=== PATIENT | female | born 1975 | race Caucasian/White ===

== ENCOUNTER 2023-09-30 09:00 | Outpatient (RCR) | payer OTHER, SELFPAY ==
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
--- NOTE | 2023-09-30 10:02 | HP.PTREVAL ---
Re-Evaluation Intro: Dr. Alon Kumar, DO, It has been my pleasure to treat ANGELIC ARCHULETA over the last 8 visits for CERVICAL SPONDYLOSIS & R SHLD IMPINGEMENT. Please see the progress note below for an update on the physical therapy plan of care! Subjective Subjective: PATIENT REPORTS SHE HAD FOLLOW UP WITH DR. KUMAR 09/25/23 AND HE ORDERED A NECK MRI (PENDING 10/15/23) AND THINKS IT IS DISC RELATED PROBABLY BELOW HER PRIOR SURGERY. OVER-ALL PATIENT REPORTS THERAPY HAS NOT HELPED HER PAIN AND NOW SHE IS GETTING L NECK PAIN TOO. SHE REPORTS SHE HAS LEARNED TOOLS IN PT TO HELP HER MANAGE THE PAIN. Objective Objective/Function: UPON EXAM TODAY PATIENT HAS LESS IRRITABILITY OF PAIN WITH NECK ROM TESTING AND BETTER STRENGTH OF R UE. SHE ALSO HAS BETTER POSTURAL AWARENESS AND STRENGTH. SHE IS PLEASANT AND COOPERATIVE TO WORK WITH AND ATTENTIVE TO INSTRUCTIONS GIVEN. ROM deficit: DILMA UE ROM WFL AND SYMMETRICAL. Motor deficit: L HAND DOMINANT BUT DOES EVERYTHING WITH R HAND EXCEPT WRITE. L UE 5/5. R UE 5/5. Cervical Mvmt Loss: Flex: MIN - INCREASES NECK - NW Pro: NIL Ext: MIN Ret: MOD - NO PAIN UNLESS TRIES TO GO FURTHER. RSB: MOD - INCREASES NECK - NW LSB: MIN - INCREASES NECK - NW R Rot: MOD - INCREASES NECK - NW L Rot: MIN - INCREASES NECK - NW Postural strength: FAIR Plan Plan Plan: D/C TO INDEP HEP AND FOLLOW UP WITH MRI AND DR. KUMAR. PATIENT ALSO REPORTS SHE MIGHT BE RE-LOCATING TO ANOTHER STATE FOR WORK. PATIENT IS AGREEABLE TO D/C. Balance/Gait/Functional tests Balance/Special Test Scores Oswestry Neck Score: 12 Quick DASH Score: 25.0000 Goals Goals Goal 1:: DECREASE C/O NECK AND R UE SX'S BY AT LEAST 50% TO EASE ADL AND WORK FUNCTION Goal Time Frame: 4-6 Weeks Goal Progress: Not Progressing Goal 2:: PATIENT WILL HAVE INCREASED PAINFREE CERVICAL ROM TO EASE ADL'S Goal Time Frame: 4-6 Weeks Goal Progress: Not Progressing Goal 3:: PATIENT WILL HAVE INCREASED R SHLD FUNCTIONAL STRENGTH TO EASE ADL'S. Goal Time Frame: 4-6 Weeks Goal Progress: Progressing Goal 4:: PATIENT WILL SCORE AT LEAST 5 POINTS BETTER ON THE QUICK DASH AND NECK OSWESTRY QUESTIONNAIRS Goal Time Frame: 4-6 Weeks Goal Progress: Progressing Goal 5:: INDEP HEP Goal Time Frame: 4-6 Weeks Goal Progress: Goal Met Anticipated Interventions Anticipated Interventions Patient/Client Instruction: Educate patient on: Condition, Plan of Care and Risk Factors For the Purpose of:: To improve self management Therapeutic Exercise to Include: Strength training, Body mechanics, Postural training, Flexibilty training, Neuromotor development and Scapular Strength/Stabilization For the Purpose of:: To decrease pain, To improve muscle performance and motor function, To increase tolerance to activity/condition/position, To improve ability of physical actions for home/community/work/leisure, To decrease soft tissue restriction and To increase flexibility/ROM Cryotherapy (ice pack, ice massage): Yes Thermo therapy (hot pack): Yes Ultrasound (thermal/non thermal): Yes (1.3 TO 1.5 W/CM2 X 8-10 MIN TO NECK AND R SHLD REGIONS.) For the Purpose of:: To decrease pain, To decrease swelling/inflammation and To improve nutrient delivery to tissue Re-Evaluation Ending Re-evaluation ending: Please do not hesitate to contact me at [phone] by phone or if you have questions or concerns regarding this new plan of care! Sincerely, Brittanie Matthews, PT, Cert MDT
--- NOTE | 2024-02-26 15:34 | HP.PTDCSUM ---
Discharge Summary D/C summary: It has been my pleasure to treat ANGELIC ARCHULETA referred by Dr. Alon Kumar, DO, with the diagnosis of CERVICAL SPONDYLOSIS & R SHLD IMPINGEMENT for a total of 8 visit(s). Discharge Date: 09/30/23 Please see the following information for a summary of their discharge status. Subjective Subjective: PATIENT REPORTS SHE HAD FOLLOW UP WITH DR. KUMAR 09/25/23 AND HE ORDERED A NECK MRI (PENDING 10/15/23) AND THINKS IT IS DISC RELATED PROBABLY BELOW HER PRIOR SURGERY. OVER-ALL PATIENT REPORTS THERAPY HAS NOT HELPED HER PAIN AND NOW SHE IS GETTING L NECK PAIN TOO. SHE REPORTS SHE HAS LEARNED TOOLS IN PT TO HELP HER MANAGE THE PAIN. Pain Bilateral Neck: Pain Intensity (Out of 10): 2 R SHLD: Pain Intensity (Out of 10): 2 HEADACHE: Pain Intensity (Out of 10): 0 Overall Improvement % Improvement: 0 Objective Objective/Function: UPON EXAM TODAY PATIENT HAS LESS IRRITABILITY OF PAIN WITH NECK ROM TESTING AND BETTER STRENGTH OF R UE. SHE ALSO HAS BETTER POSTURAL AWARENESS AND STRENGTH. SHE IS PLEASANT AND COOPERATIVE TO WORK WITH AND ATTENTIVE TO INSTRUCTIONS GIVEN. ROM deficit: DILMA UE ROM WFL AND SYMMETRICAL. Motor deficit: L HAND DOMINANT BUT DOES EVERYTHING WITH R HAND EXCEPT WRITE. L UE 5/5. R UE 5/5. Cervical Mvmt Loss: Flex: MIN - INCREASES NECK - NW Pro: NIL Ext: MIN Ret: MOD - NO PAIN UNLESS TRIES TO GO FURTHER. RSB: MOD - INCREASES NECK - NW LSB: MIN - INCREASES NECK - NW R Rot: MOD - INCREASES NECK - NW L Rot: MIN - INCREASES NECK - NW Postural strength: FAIR Goals Goal 1:: DECREASE C/O NECK AND R UE SX'S BY AT LEAST 50% TO EASE ADL AND WORK FUNCTION Goal Progress: Not Progressing Goal 2:: PATIENT WILL HAVE INCREASED PAINFREE CERVICAL ROM TO EASE ADL'S Goal Progress: Not Progressing Goal 3:: PATIENT WILL HAVE INCREASED R SHLD FUNCTIONAL STRENGTH TO EASE ADL'S. Goal Progress: Progressing Goal 4:: PATIENT WILL SCORE AT LEAST 5 POINTS BETTER ON THE QUICK DASH AND NECK OSWESTRY QUESTIONNAIRS Goal Progress: Progressing Goal 5:: INDEP HEP Goal Progress: Goal Met Plan Plan: D/C TO INDEP HEP AND FOLLOW UP WITH MRI AND DR. KUMAR. PATIENT ALSO REPORTS SHE MIGHT BE RE-LOCATING TO ANOTHER STATE FOR WORK. PATIENT IS AGREEABLE TO D/C. D/C Information d/c sentence: If there are questions or concerns regarding this patient's physical therapy, please feel free to call me at [phone]. Thank you for the referral of this patient. Sincerely, Brittanie Matthews, PT, Cert MDT Balance/Gait/Functional tests Balance/Special Test Scores Oswestry Neck Score: 12 Quick DASH Score: 25.0000 Improvement % Improvement: 0
== END 2023-09-30 19:00 | disposition home or self-care (01) ==
LOC: PT 09:00
PROVIDERS: Referring Provider Orthopaedic Surgery Orthopaedic Surgery of the Spine; Visit Provider Orthopaedic Surgery Orthopaedic Surgery of the Spine
DX: M47.812 Spondylosis without myelopathy or radiculopathy, cervical region (principal); M25.811 Other specified joint disorders, right shoulder; Z98.1 Arthrodesis status
CPT/HCPCS: 97035; 97110; 97140; 97162; 97530

== ENCOUNTER 2024-04-08 12:00 | Outpatient (RCR) | payer OTHER, SELFPAY ==
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
--- NOTE | 2024-04-08 13:07 | HP.PTDCSUM ---
Discharge Summary D/C summary: It has been my pleasure to treat ANGELIC ARCHULETA referred by Dr. Alon Larose DO, with the diagnosis of S/P ACDF 02/02/24 for a total of 8 visit(s). Discharge Date: 04/08/24 Please see the following information for a summary of their discharge status. Subjective Subjective: PATIENT STATES MY VASQUEZ'S ARE VERY MINIMAL NOW. I FEEL GOOD. SHE REPORTS THAT OVER-ALL THE EX'S GOT EASIER SHE KEPT COMING AND SHE HASN'T BEEN NEEDING TO TAKE MUSCLE RELAXERS. SHE REPORTS HER R BICEP GOT MUCH BETTER WITH REST AND IS JUST TENDER INTERMITTENTLY NOW. PATIENT REPORTS SHE HAS BEEN TRYING TO MAKE COOKIES TODAY AND SHE CAN REALLY FEEL IT IN HER HANDS. Pain Bilateral Neck: Pain Intensity (Out of 10): 1 Overall Improvement % Improvement: 25 Objective Objective/Function: PATIENT WAS SEEN TODAY FOR ASSESSMENT OF PROGRESS TOWARD THE SET PT GOALS AND THE NEED FOR FURTHER PHYSICAL THERAPY VS READINESS FOR DISCHARGE. PATIENT IS INDEP WITH A HEP, HAS IMPROVED STRENGTH, IMPROVED ROM AND CONTROLLED PAIN. SHE WOULD LIKE TO CONTINUE INDEP EX AT THIS TIME. UPON EXAM TODAY: ROM deficit: B SHLD ELEVATION = 155 DEG. PATIENT DENIES PAIN OR PULLING WITH TESTING. 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 Dural Signs: NEGATIVE DILMA UE'S. Cervical Mvmt Loss: Flex: MIN Pro: MIN Ext: MIN Ret: MOD RSB: MIN LSB: MIN R Rot: MIN TO MOD L Rot: MIN PATIENT DENIES PAIN WITH CERVICAL ROM TESTING TODAY AND REPORTS JUST STRETCHING AT BASE OF NECK AT THE END OF THE AVAILABLE ROM. Postural strength: FAIR Palpation: NO TENDERNESS INCLUDING R UPPER ARM. INCISION LOOKS GOOD WITHOUT ANY SIGNS OF INFECTION. Goals Goal 1:: DECREASE C/O NECK AND UE SX'S BY AT LEAST 75% TO EASE ADL FUNCTION Goal Progress: Progressing Goal 2:: IMPROVE PERSONAL CARE, LIFTING, READING, SLEEP, WORK, DRIVING AND RECREATIONAL FUNCTION Goal Progress: Progressing Goal 3:: INSTRUCT IN PROPHYLAXIS Goal Progress: Progressing Plan Plan: D/C TO INDEP HEP D/C Information d/c sentence: If there are questions or concerns regarding this patient's physical therapy, please feel free to call me at [phone]. Thank you for the referral of this patient. Sincerely, Brittanie Matthews, PT, Cert MDT Balance/Gait/Functional tests Balance/Special Test Scores Oswestry Neck Score: 13 Improvement % Improvement: 25
== END 2024-04-08 19:00 | disposition home or self-care (01) ==
LOC: PT 12:00
PROVIDERS: Referring Provider Orthopaedic Surgery Orthopaedic Surgery of the Spine; Visit Provider Orthopaedic Surgery Orthopaedic Surgery of the Spine
DX: M47.22 Other spondylosis with radiculopathy, cervical region (principal); M48.02 Spinal stenosis, cervical region; M25.811 Other specified joint disorders, right shoulder; Z98.1 Arthrodesis status; Z47.89 Encounter for other orthopedic aftercare
CPT/HCPCS: 97110; 97162; 97530

== ENCOUNTER → 2024-12-24 | Outpatient (CLI) | payer OTHER, SELFPAY ==
[2024-12-24 10:28] LABS: Hematocrit 40.6 % (37-47); Hemoglobin 13.6 g/dL (12.0-15.0); Immature Granulocytes Count 0.010 X10^3/uL (0.0-0.0); Mean Corp Hgb Conc 33.5 g/dL (32-36); Mean Corpuscular Volume 86.6 fL (81-99); Mean Platelet Vol. 10.4 fl (6.2-12.0); NRBC Flagged by Analyzer 0 % (0-5); Platelet Count 257 K/mm3 (150-450); RBC Distribution Width CV 13.2 % (11.6-14.6); RBC Distribution Width SD 41.1 fl (35.1-43.9); Red Blood Count 4.69 M/mm3 (4.2-5.4); White Blood Count 5.2 K/mm3 (4.4-11.0)
[2024-12-24 11:14] LABS: AST(SGOT) 22 U/L (<=31); Alanine Aminotransfer ALT/SGPT 28 U/L (<=34); Albumin, Serum 4.5 g/dL (3.5-5.0); Alkaline Phosphatase 98 U/L (35-104); Anion Gap 12 (5-15); CRP 4.17 mg/L (0.0-3.0); Calcium,Total 9.7 mg/dL (7.6-11.0); Carbon Dioxide 25.6 mmol/L (21.0-32.0); Chloride 104 mmol/L (98-108); Glucose 107 mg/dL (70-99); Potassium 4.2 mmol/L (3.3-5.1)
[2024-12-24 11:15] LABS: Cholesterol 259 mg/dL (<=200); cholesterol:hdl ratio screen 5.09
[2024-12-24 11:36] LABS: BUN 12 mg/dL (4-19); BUN/Creat Ratio 17.0 RATIO (10-20); Globulin 2.9 g/dL (2.2-4.2); Low Density Lipoprotein Calc. 175 mg/dL; Triglycerides 164 mg/dL; Very Low Density Lipoprotein 33 mg/dL (5-40)
[2024-12-25 16:08] LABS: ANTINUCLEAR ANTIBODIES DIRECT Negative (Negative); PROGESTERONE <0.1 ng/mL (.)
[2024-12-27 16:09] LABS: PROEL- A/G Ratio 1.3 (0.7-1.7); PROEL- Albumin 3.7 g/dL (2.9-4.4); PROEL- Alpha-1 Globulin 0.3 g/dL (0.0-0.4); PROEL- Alpha-2 Globulin 0.8 g/dL (0.4-1.0); PROEL- Beta Globulin 1.2 g/dL (0.7-1.3); PROEL- Gamma Globulin 0.7 g/dL (0.4-1.8); PROEL- Globulin, Total 2.9 g/dL (2.2-3.9); PROEL- TOTAL PROTEIN 6.6 g/dL (6.0-8.5); PROEL-M-Spike Not Observed g/dL (Not Observed)
== END | disposition home or self-care (01) ==
LOC: MTLAB 08:49
PROVIDERS: PCP Family Medicine; Referring Provider Family Medicine; Visit Provider Family Medicine
DX: M79.10 Myalgia, unspecified site (principal); E66.812 Obesity, class 2; E28.39 Other primary ovarian failure; Z68.36 Body mass index [BMI] 36.0-36.9, adult
CPT/HCPCS: 36415; 80053; 80061; 81050; 82024; 82530; 82627; 82670; 83036; 84144; 84165; 84443; 85025; 85652; 86038; 86140; 82626

== ENCOUNTER → 2024-12-28 | Outpatient (CLI) | payer OTHER, SELFPAY ==
[2025-01-05 09:09] LABS: Cortisol, Free 24Ur 20 ug/24 hr (6-42)
== END | disposition home or self-care (01) ==
LOC: LABSPEC 16:25
PROVIDERS: PCP Family Medicine; Visit Provider Family Medicine
DX: M79.10 Myalgia, unspecified site (principal); E66.812 Obesity, class 2; Z68.36 Body mass index [BMI] 36.0-36.9, adult
CPT/HCPCS: 81050; 82530

== ENCOUNTER → 2025-01-06 | Outpatient (CLI) | payer OTHER, SELFPAY ==
--- NOTE | 2025-01-06 16:20 | BD_ITS ---
PROCEDURE: DEXA BONE DENSITY STUDY 01/06/2025 REASON FOR EXAM: F, age 49 y/o . Postmenopausal. TECHNIQUE: Procedure Code: [id number] Modality: DX Procedure: DEXA BONE DENSITY STUDY COMPARISON: None FINDINGS: BMD and T-SCORES Lumbar spine: 1.207 g/cm2, T-score 1.5 Levels: L1 through L4 Left femoral neck: 0.807 g/cm2, T-score -0.4 Femoral neck comparison data not recommended for monitoring change. Left total hip: 1.088 g/cm2, T-score 1.2 Right femoral neck: 0.801 g/cm2, T-score -0.4 Femoral neck comparison data not recommended for monitoring change. Right total hip: 1.043 g/cm2, T-score 0.8 The World Health Organization has defined the following categories based on bone density: Normal bone density: T-score equal to or greater than -1.0 Osteopenia: T-score between -1.0 and -2.5 Osteoporosis: T-score equal to or less than -2.5 FRAX (or Comparable) Fracture Risk Assessment: 10 Year Probability of Fracture: Major Osteoporotic Fracture: 3.8% Hip Fracture: 0.1% (Note: FRAX is not to be reported in setting of normal range bone density, osteoporosis on DEXA, known history of osteoporosis, prior osteoporotic hip or vertebral fracture, or for any patient undergoing pharmacological treatment for bone loss.) The National Osteoporosis Foundation (NOF) recommends pharmacological treatment for patients with a FRAX 10-year risk of 3% or higher for a hip fracture, or 20% or higher for a major osteoporotic fracture, to prevent osteoporosis and reduce fracture risk. The patient does not meet the pharmacological treatment recommendations for prevention of osteoporosis. BD/Dexa Bone Density Study IMPRESSION: NORMAL T-SCORES. Recommend follow-up as clinically warranted. Reading Location: [place] [id number]
--- NOTE | 2025-01-06 16:20 | BI_ITS ---
EXAM: SCRN MAMM (CAD)W/SUHA BILAT DATE: 01/06/2025 CLINICAL HISTORY: F, Age 49 y/o , SCREENING TECHNIQUE: Procedure Code: [id number] Modality: MG Procedure: SCRN MAMM (CAD)W/SUHA BILAT COMPARISON: Prior exam(s) dated 04/09/2018, 04/09/2017. FINDINGS: TISSUE DENSITY: The breasts are almost entirely fatty. Bilateral Breast Mammographic Findings: No significant masses, calcifications or other abnormalities are identified. BI/SCRN MAMM (CAD)W/SUHA BILAT IMPRESSION: There is no mammographic evidence of malignancy. OVERALL FINAL ASSESSMENT BI-RADS 1: NEGATIVE. RECOMMENDATION: Routine annual follow-up in 1 Year A letter with findings and recommendations will be mailed to the patient. Reading Location: [id number]
== END | disposition home or self-care (01) ==
PROVIDERS: PCP Family Medicine; Referring Provider Family Medicine; Visit Provider Family Medicine
DX: Z12.31 Encounter for screening mammogram for malignant neoplasm of breast (principal); E28.39 Other primary ovarian failure
CPT/HCPCS: 77063; 77067; 77080

== ENCOUNTER → 2025-01-27 | Outpatient (CLI) | payer OTHER, SELFPAY ==
[2025-01-27 19:28] LABS: CRP 3.15 mg/L (0.0-3.0); Cholesterol 245 mg/dL (<=200); Low Density Lipoprotein Calc. 152 mg/dL; Triglycerides 235 mg/dL; Very Low Density Lipoprotein 47 mg/dL (5-40); cholesterol:hdl ratio screen 5.33
== END | disposition home or self-care (01) ==
LOC: MFPLAB 16:39
PROVIDERS: PCP Family Medicine; Visit Provider Family Medicine
DX: M79.10 Myalgia, unspecified site (principal); E78.00 Pure hypercholesterolemia, unspecified
CPT/HCPCS: 36415; 80061; 82024; 82627; 86140; 82626

== ENCOUNTER 2025-02-04 06:31 | Day surgery (SDC) | payer OTHER, SELFPAY ==
[2025-02-04] VITALS (8 sets, daily range): BP systolic 99–130; BP diastolic 68–101; PULSE 58–90; RESP 12–16; TEMP 36.3–36.9; O2SAT 95–99; BMI 34.8
[2025-02-04] MEDS: Lactated Ringers 1,000 ML 15 ML IV (06:54)
[2025-02-04] MEDS: Lactated Ringers 500 ML IV (07:31)
== END 2025-02-04 08:40 | disposition home or self-care (01) ==
LOC: EN 06:32 → AC 06:33
PROVIDERS: PCP Family Medicine; Referring Provider Family Medicine; Visit Provider Surgery
PROC: 0DJD8ZZ Inspection of Lower Intestinal Tract, Via Natural or Artificial Opening Endoscopic (ICD-10-PCS; CPT 45378; principal; 2025-02-04 07:25)
DX: Z12.11 Encounter for screening for malignant neoplasm of colon (principal); K64.9 Unspecified hemorrhoids; R19.7 Diarrhea, unspecified
CPT/HCPCS: 45378